=== PATIENT | male | born 1965 | race Caucasian/White ===

== ENCOUNTER → 2023-09-17 13:31 | Outpatient (REF) | payer BC, SELFPAY | LOC: MRI 3T 13:31 | PROVIDERS: ATTENDING PHYSICIAN Specialist; FAMILY PHYSICIAN Family Medicine | DX: R97.20 Elevated prostate specific antigen [PSA] (principal) | CPT/HCPCS: 72197; A9575 ==

== ENCOUNTER → 2023-10-05 12:32 | Outpatient (REF) | payer BC, SELFPAY ==
[2023-10-05 15:36] LABS: % Basophils 0.3 % (0-2); % Eosinophils 0.6 % (0-6); % Immature Granulocytes 0.5 % (0-0.5); % Lymphocytes 12.8 % (20.5-51.1); % Monocytes 6.7 % (1.7-9.3); % Neutrophils 79.1 % (42.2-75.2); Absolute Eosinophils 0.1 10^3/uL (0-0.7); Absolute Immature Granulocytes 0.1 10^3/uL (0-0.05); Absolute Lymphocytes 1.6 10^3/uL (1.2-3.4); Absolute Monocytes 0.8 10^3/uL (0.1-0.6); Absolute Neutrophils 9.7 10^3/uL (1.4-6.5); Hematocrit 43.6 % (39.0-52.0); Hemoglobin 14.2 g/dL (13.0-18.0); Mean Corp Hgb Conc. 32.6 g/dL (33.0-37.0); Mean Corpuscular Hgb 28.4 pg (27.0-31.0); Mean Corpuscular Volume 87.2 fL (80.0-94.0); Mean Platelet Volume 10.3 fL (7.4-10.4); Nucleated Red Blood Cells % 0 % (-); Platelet Count 266 10^3/uL (130-400); Red Cell Dist. Width 13.9 % (11.5-14.5); White Blood Cell Count 12.3 10^3/uL (4.8-10.8)
== END ==
LOC: HWLAB 12:32
PROVIDERS: ATTENDING PHYSICIAN Internal Medicine; FAMILY PHYSICIAN Family Medicine
DX: R31.9 Hematuria, unspecified (principal)
CPT/HCPCS: 36415; 85025

== ENCOUNTER → 2023-10-15 07:00 | Outpatient (REF) | payer BC, SELFPAY | LOC: RCS 07:00 | PROVIDERS: ATTENDING PHYSICIAN Internal Medicine; FAMILY PHYSICIAN Family Medicine | DX: I48.91 Unspecified atrial fibrillation (principal); I10 Essential (primary) hypertension; R06.09 Other forms of dyspnea; R00.2 Palpitations | CPT/HCPCS: 78452; 93017; A9500; J2785 ==

== ENCOUNTER → 2023-10-18 07:36 | Outpatient (REF) | payer BC, SELFPAY | LOC: RCS 07:36 | PROVIDERS: ATTENDING PHYSICIAN Internal Medicine; FAMILY PHYSICIAN Family Medicine | DX: I48.91 Unspecified atrial fibrillation (principal); I10 Essential (primary) hypertension; R06.09 Other forms of dyspnea; R00.2 Palpitations | CPT/HCPCS: 93307; Q9957 ==

== ENCOUNTER → 2023-10-22 09:58 | Outpatient (REF) | payer BC, SELFPAY ==
[2023-10-22 12:05] LABS: ALT (SGPT) 25 U/L (0-50); AST (SGOT) 21 U/L (17-59); Albumin 4.2 g/dl (3.5-5.0); Alkaline Phosphatase 86 U/L (38-126); Blood Urea Nitrogen 21 mg/dl (9-20); Calcium 9.6 mg/dl (8.4-10.2); Carbon Dioxide 24 mmol/L (22-30); Chloride 104 mmol/L (98-107); Glucose 122 mg/dl (70-99); Potassium 4.6 mmol/L (3.5-5.1); Sodium 139 mmol/L (135-145); Total Bilirubin 0.8 mg/dl (0.2-1.3); Total Protein 7.3 g/dl (6.3-8.2); eGFR > 60.00
== END ==
LOC: REG 09:58
PROVIDERS: ATTENDING PHYSICIAN Internal Medicine Cardiovascular Disease; FAMILY PHYSICIAN Family Medicine
DX: R94.39 Abnormal result of other cardiovascular function study (principal); I42.9 Cardiomyopathy, unspecified; I10 Essential (primary) hypertension
CPT/HCPCS: 36415; 80053

== ENCOUNTER 2023-10-25 08:29 | Day surgery (SDC) | payer BC, SELFPAY ==
[2023-10-25] VITALS (10 sets, daily range): BP systolic 87–116; BP diastolic 58–86; BMI 50.5
[2023-10-25] MEDS: LOW STRENGTH ASPIRIN 81 MG PO (08:53)
[2023-10-25] MEDS: NSS 479 ML IV (08:55)
[2023-10-25] MEDS: NSS 1000 IV (10:24)
--- NOTE | 2023-10-25 10:29 | ITS.CL.CATH ---
Design And Sales Consultant - Catheterization
Cardiac Catheterization
Procedure Report:
CARDIAC CATHETERIZATION REPORT
Date of Procedure: 10/25/2023
Referring: Wayne Reveles MD, PhD
Indication: Newly diagnosed cardiomyopathy with newly diagnosed atrial fibrillation of unclear duration
HEMODYNAMIC DATA
AO: 98/60
LV: 98/14
LEFT VENTRICULOGRAPHY: Mildly dilated left ventricle with severe global hypokinesis with visually estimated EF 20-25%
CORONARY ANGIOGRAPHY
Dominance: Right
Left Main: Normal
LAD: Normal
Circumflex: Normal
RCA: Normal dominant vessel
Closure Device: None-the procedure was performed via the right radial artery. The Jed's test was normal prior to the procedure.
Radiation (mGy): 752
DAP (cm2.Gy): 71.3
Fluoroscopy time: 4.0 minutes
CONCLUSIONS
1: Mildly dilated left ventricle with severe global hypokinesis with EF 20-25%
2: Normal coronary arteries
3. Findings suggest either a tachcardia induced cardiomyopathy or an idiopathic cardiomyopathy with secondary AF. Will discuss cardioversion options with Dr Reveles
Copy to: Wayne Reveles MD, PhD, Stan Granda DO
Vu Sanford MD, [facility], [facility]
--- NOTE | 2023-10-25 11:05 | PTCARENOTE ---
Dr Sanford at pt bedside speaking to pt and pt's .
--- NOTE | 2023-10-25 11:44 | PTCARENOTE ---
Addendum entered by Mary Mathews RN 10/25/23 11:53:
Jenniffer MEREDITH assessed pt and states it is the cleaning soap.
Original Note:
Pt noted his right palm of his hand is ecchymotic post procedure. Pt denies any pain. +2 right radial pulse noted. No bleeding or hematoma noted. Jenniffer MEREDITH made aware and states will be in to evaluate pt.
== END 2023-10-25 13:00 | disposition home or self-care (01) ==
LOC: CATH 08:29
PROVIDERS: ATTENDING PHYSICIAN Internal Medicine Cardiovascular Disease
DX: I42.9 Cardiomyopathy, unspecified (principal); I48.19 Other persistent atrial fibrillation; R94.39 Abnormal result of other cardiovascular function study; I10 Essential (primary) hypertension; E78.5 Hyperlipidemia, unspecified; E66.01 Morbid (severe) obesity due to excess calories; Z68.43 Body mass index [BMI] 50.0-59.9, adult; R73.03 Prediabetes; G47.33 Obstructive sleep apnea (adult) (pediatric); Z79.01 Long term (current) use of anticoagulants; Z79.84 Long term (current) use of oral hypoglycemic drugs
CPT/HCPCS: 93458; C1894; Q9967

== ENCOUNTER → 2023-10-27 07:30 | Day surgery (SDC) | payer BC, SELFPAY ==
[2023-10-27 08:22] VITALS: BMI 51.0
== END ==
LOC: CATH 07:30
PROVIDERS: ATTENDING PHYSICIAN Internal Medicine; FAMILY PHYSICIAN Family Medicine
DX: I48.19 Other persistent atrial fibrillation (principal); I42.9 Cardiomyopathy, unspecified; R94.39 Abnormal result of other cardiovascular function study; I10 Essential (primary) hypertension; E78.5 Hyperlipidemia, unspecified; E66.01 Morbid (severe) obesity due to excess calories; Z68.43 Body mass index [BMI] 50.0-59.9, adult; R73.03 Prediabetes; G47.33 Obstructive sleep apnea (adult) (pediatric); Z79.01 Long term (current) use of anticoagulants
CPT/HCPCS: 93312; 93320; 93325; 92960

== ENCOUNTER → 2023-11-08 09:11 | Outpatient (REF) | payer BC, SELFPAY ==
[2023-11-08 10:06] LABS: % Basophils 0.3 % (0-2); % Eosinophils 1.1 % (0-6); % Immature Granulocytes 0.3 % (0-0.5); % Lymphocytes 11.2 % (20.5-51.1); % Monocytes 9.2 % (1.7-9.3); % Neutrophils 77.9 % (42.2-75.2); Absolute Eosinophils 0.1 10^3/uL (0-0.7); Absolute Monocytes 0.8 10^3/uL (0.1-0.6); Absolute Neutrophils 6.9 10^3/uL (1.4-6.5); Hematocrit 43.3 % (39.0-52.0); Hemoglobin 13.9 g/dL (13.0-18.0); Mean Corp Hgb Conc. 32.1 g/dL (33.0-37.0); Mean Corpuscular Hgb 28.4 pg (27.0-31.0); Mean Corpuscular Volume 88.4 fL (80.0-94.0); Mean Platelet Volume 10.1 fL (7.4-10.4); Nucleated Red Blood Cells % 0 % (-); Platelet Count 236 10^3/uL (130-400); Red Cell Dist. Width 14.2 % (11.5-14.5); White Blood Cell Count 8.9 10^3/uL (4.8-10.8)
[2023-11-08 10:39] LABS: Blood Urea Nitrogen 21 mg/dl (9-20); Calcium 8.9 mg/dl (8.4-10.2); Carbon Dioxide 23 mmol/L (22-30); Chloride 108 mmol/L (98-107); Glucose 113 mg/dl (70-99); Potassium 4.5 mmol/L (3.5-5.1); Sodium 137 mmol/L (135-145); eGFR > 60.00
== END ==
LOC: REG 09:11
PROVIDERS: ATTENDING PHYSICIAN Nurse Practitioner; FAMILY PHYSICIAN Family Medicine
DX: I42.9 Cardiomyopathy, unspecified (principal)
CPT/HCPCS: 36415; 80048; 85025

== ENCOUNTER 2023-11-23 07:56 | Day surgery (SDC) | payer BC, SELFPAY ==
[2023-11-23] VITALS (15 sets, daily range): BP systolic 60–136; BP diastolic 33–105; BMI 49.2
[2023-11-23 11:16] LABS: ACT-LR - POC 236 Seconds (116-155)
[2023-11-23 11:38] LABS: ACT-LR - POC 260 Seconds (116-155)
[2023-11-23 11:44] LABS: ACT-LR - POC 269 Seconds (116-155)
[2023-11-23 11:45] LABS: ACT-LR - POC 277 Seconds (116-155)
[2023-11-23 12:10] LABS: ACT-LR - POC 314 Seconds (116-155)
--- NOTE | 2023-11-23 12:44 | ITS.CL.ABL ---
[facility] - Ablation
Ablation
Procedure Report:
AFIB ablation:
Mr. Berg is a very pleasant 57 yr old gentleman with medical history significant for symptomatic long standing persistent atrial fibrillation with severe systolic dysfunction with dilated cardiomyopathy LVEF of 20% and severe LUTHER with morbid
obesity who is here in the EP lab for atrial fibrillation ablation
Date of Procedure:
11/23/2023
Indications:
Symptomatic atrial fibrillation
Pre-Operative Diagnosis:
Longstanding Persistent Atrial fibrillation
Post-Operative Diagnosis:
Longstanding Persistent Atrial fibrillation
Procedure Performed:
Atrial fibrillation ablation with wide area circumferential ablation (WACA) approach for pulmonary vein isolation
Epicardial connection in the left jasiel ablation
Performing Physician:
Pascual Mendez MD
Assistants:
EP staff
Anesthesia:
See anesthesia records
Detailed Description of the Procedure:
Written informed consent was obtained from the patient after a full explanation of the risks and benefits of the procedure including the risks of sedation and anesthesia.
The patient was brought to the electrophysiology laboratory in stable condition in fasting state. Continuous electrocardiographic and hemodynamic monitoring was initiated.
The initial rhythm was atrial fibrillation.
The procedure site was meticulously prepared with surgical scrub and allowed to dry with no pooling. Sterile draping was applied to cover the procedure site. The image intensifier was draped with sterile bag and positioned over the patient. After
infusion of local anesthetic, vascular access was obtained under ultrasound guidance and sheaths were placed over guide wire as detailed below.
Sheath and Catheter Placement:
In the right femoral vein, an 8-Macedonian sheath was placed for use during the ablation procedure. A second 9-Fr sheath was placed for use during intracardiac echo procedure.
The sheaths were upgraded as needed during the case. Intracardiac catheters were positioned using direct fluoroscopic guidance.� ICE catheter was placed in RA. The following catheters / sheaths were placed
Sheaths:
��������������� Agilis sheath in right femoral vein upgraded from 8Fr in right femoral vein
��������������� 9Fr in right femoral vein
��������������� 7fr in right femoral vein
Catheters:
������������� [employer] Thermacool STSF bidirectional (D/F) - at locations of HRA, RV, LA and LV.
������������� Pentaray catheter � at locations of RA and LA
������������� ICE catheter - at locations of RA, SVC, and RV.
������������� Decapolar Bard catheter � at locations of RA and CS
Intracardiac ECHO:
An 8-Macedonian AcuNav intracardiac ECHO (ICE) probe was advanced through the 9-Macedonian sheath in the femoral vein into the right atrium under fluoroscopic and ICE ultrasound image guidance and a baseline ECHO study was performed. The left atrial size
was enlarged. There was trace tricuspid regurgitation. The aortic valve was normal. There was severe systolic left ventricular dysfunction. There was no pericardial effusion. The XIAO has low velocities noted on Doppler in atrial fibrillation. All
the four veins were identified and good flow noted.
During the procedure, ICE was used for monitoring of complications, guidance of trans-septal puncture, monitor the catheter position and tracking ablation lesions. No change in the pericardial space noted throughout the procedure.
Trans-septal Puncture:
Heparin was initiated and infused to maintain appropriate ACT.
A J-tipped guidewire was advanced through the 8-Macedonian sheath in the right femoral vein into the superior vena cava under fluoroscopic and ICE guidance. The 8-Macedonian sheath was exchanged for an Agilis sheath which was advanced into the superior vena
cava. A BRK needle was advanced until the tip was slightly behind the tip of the dilator inside the Agilis. The apparatus was withdrawn until it was in contact with the fossa ovalis. The position was adjusted based on fluoroscopy and ultrasound
images from ICE. Under fluoroscopic, hemodynamic and ICE ultrasound guidance, left atrium was cannulated by advancing the needle. Once atrial septum was cannulated, the needle was pulled back and saline injection was given into the left atrium. Both
the sheath and the dilator was advanced into the left atrium. The dilator with the needle was withdrawn. Blood was aspirated from the Agilis sheath and arterial blood confirmed. The sheath was flushed. Saline injection noted into the left atrium on
ICE. The pressure waveform was checked ad LA pressure measured. The penta-ray catheter was advanced in the Agilis sheath into the left pulmonary vein.
The 3-D mapping was done and then the penta-ray was switched to ablation catheter and back to penta-ray as needed.
While mapping the LA the transseptal puncture was lost and another TSSP was done as noted above.
3D Electroanatomic Mapping:
Using the Pentaray catheter advanced through Agilis sheath into the left atrium, an electroanatomic map (EAM) of the left atrium was created using The [employer] Carto mapping system. The map was used for localization of catheter position and
tacking of ablation lesions. The EAM of the left atrium showed 4 pulmonary veins with all four electrically connected to the body the LA. It showed some low voltage areas in atrial fibrillation on the posterior wall of the LA in atrial fibrillation
but once sinus rhythm achieved, there was only mild scar present. The LA was dilated in size.
The four pulmonary veins were very active and significant ectopy was noted.
Following the EAM, preparations were made for ablation.
Phrenic nerve stimulation attempt:
The right sided pulmonary veins were identified and the anterior antrum and the deep anterior locations of the PVs were check with high output stimulation that showed no phrenic nerve capture in any of the potential ablation areas.
The safe areas were marked and a design line was created through the safe areas of tested antral myocardium for ablation lesions.
Ablation:
Pulmonary vein Isolation:
Radiofrequency ablation was performed using an open irrigation, force-sensing 3.5mm radiofrequency ablation catheter (Thermocool STSF) by completing the circumferential lesions around the left and right pulmonary veins achieving pulmonary vein
isolation.
All the ablation lesions were guided by the [facility] SURPOINT module with the posterior lesions were limited to 45 luna for SURPOINT lesion index goal of 400 and anterior wall lesions were limited to SURPOINT index goal of 450.
The esophagus was noted to be on the left side of the LA near the PV antra based on the locations of the esophageal temperature probe. Ablation was stopped for any temperature increase of 0.1 degree C. Max esophageal temperature was 37.6C.
Cardioversion:
Due to the persistence of atrial fibrillation following the PVI, the decision was made to proceed with a cardioversion followed by the remainder of the ablation as detailed below. Therefore, a 200J shock was delivered to the chest via Zoll patches
placed with holiness of sinus rhythm. The patient remained hemodynamically stable throughout.
The CS was paced with the ablator and no cardiac pause noted.
Ablation # 2: Epicardial connection:
The epicardial connections around the jasiel of the left sided PVs were identified by capturing LA from pacing from these locations. These locations were ablated and there was no capture noted after that.
Ablation # 3: Left carinal line formation:
Given the presence of epicardial connection in the carinal area, the decision was made to create a full line of block be placing ablation lesions connecting from the posterior antral ablation lesions to the anterior antral ablations.
EP study and Confirmation of the PVI and bidirectional block:
Following achievement of entrance block at the pulmonary veins, pacing from the pentaray catheter in XIAO and the pentaray in each of the four veins at 10 milliamps for 2 milliseconds showed entrance and exit block. All PVI were rechecked at the end
of the case and remained isolated with dissociated and local capture with pacing. Entrance and exit block were demonstrated in all veins.
The LA was mapped with Carto EAM in sinus rhythm confirming the line of block at the ablation lesions lines.
Sinus Node Function: The sinus node functions are within acceptable normal range.
The AV saturnino functions are deemed within normal range.
Arrhythmia Induction:
No sustained arrhythmia was induced at the end of the study.�
Procedure End
ICE study was done again that showed no epicardial accumulation. No complications noted.
Following the completion of the EP study, catheters were removed. Protamine 40 mg was given at the end of the procedure and ACT was checked repeatedly. The sheaths were removed and hemostasis achieved with manual compression after acceptable ACT is
achieved.
Left atrial Pressure:
Pre-Procedure: Mean LA pressure was 26mmHg
Post-Procedure: Mean LA pressure was 29mmHg
Post-Procedure: Mean RA pressure was 18mmHg
Estimated Blood loss:
<10 cc
Specimens Removed:
None.
Implants / Devices:
None
Urine output:
None
Packs / Drains/ Tubes:
None
Instrument / Sponge Count Correct:
Yes
Complications of the Procedure:
None
Condition of Patient at Time of Transfer:
Hemodynamically stable with no neurological or vascular compromise.
Summary:
Successful atrial fibrillation ablation with circumferential bidirectional line of block at pulmonary vein antra (Pulmonary vein isolation)
[2023-11-23] MEDS: LASIX 40 MG IV (13:23)
--- NOTE | 2023-11-23 15:03 | PTCARENOTE ---
Received pt from recovery area. AOx3, no complaints of pain or discomfort. Bedrest completed, pt ambulated to bathroom. Right groin site CDI. Oriented to room and unit. Call gonzáles within reach.
[2023-11-23] MEDS: ANESTHETIC LOZENGE 1 LOZENGE PO (15:56)
--- NOTE | 2023-11-23 16:13 | CM ---
Chart reviewed. Patient is independent of ADLS, lives with his in a 2 [address], 1 GABRIELA, 0 DME. Patient currently with no discharge needs. CM to follow
[2023-11-23] MEDS: FLOMAX 0.400000000000000022 MG PO (17:39)
[2023-11-23] MEDS: PROSCAR 5 MG PO (17:39)
[2023-11-23] MEDS: ENTRESTO 49 MG/51 MG 1 TAB PO (20:24)
[2023-11-23] MEDS: ELIQUIS 5 MG PO (20:24)
[2023-11-23] MEDS: TYLENOL 650 MG PO (20:25)
--- NOTE | 2023-11-24 02:34 | PTCARENOTE ---
Took tylenol at 2025 for c/o of a headache with relief. Using his own CPAP at . Monitor SR 60-80's with first degree AVB. Right femoral site wnl.
[2023-11-24 04:47] VITALS: BP 130/94
[2023-11-24 05:21] VITALS: BMI 48.9
[2023-11-24 05:25] LABS: Hematocrit 42.9 % (39.0-52.0); Hemoglobin 13.5 g/dL (13.0-18.0); Mean Corp Hgb Conc. 31.5 g/dL (33.0-37.0); Mean Platelet Volume 9.7 fL (7.4-10.4); Platelet Count 202 10^3/uL (130-400); Red Blood Cell Count 4.82 10^6/uL (4.70-6.10); Red Cell Dist. Width 14.3 % (11.5-14.5)
[2023-11-24 05:51] LABS: Blood Urea Nitrogen 18 mg/dl (9-20); Carbon Dioxide 26 mmol/L (22-30); Chloride 107 mmol/L (98-107); Estimated Creatinine Clearance > 125 ml/min; Glucose 117 mg/dl (70-99); Magnesium 2.1 mg/dl (1.6-2.3); Potassium 4.7 mmol/L (3.5-5.1); Sodium 137 mmol/L (135-145); eGFR > 60.00
[2023-11-24] MEDS: ELIQUIS 5 MG PO (07:23)
[2023-11-24 07:24] VITALS: BP 108/69
[2023-11-24] MEDS: ENTRESTO 49 MG/51 MG 1 TAB PO (07:24)
[2023-11-24] MEDS: FARXIGA 10 MG PO (07:24)
[2023-11-24 08:28] VITALS: BMI 48.9
--- NOTE | 2023-11-24 08:45 | W.PN.CD ---
Today's Communication / Plan
-
- Stable for discharge
- Lasix added to regimen.
Impression / Plan
-
Mr. Berg is a very pleasant 57 yr old gentleman with medical history significant for symptomatic long standing persistent atrial fibrillation with severe systolic dysfunction with dilated cardiomyopathy LVEF of 20% and severe LUTHER with morbid
obesity s/p atrial fibrillation ablation
Long standing persistent AF
- s/p PVI om 11/23/23
- Sinus node was slow to wake up and junction rhythm noted
- Metoporlol held
- Sinus rhythm is normal this AM
- OK to resume Metoprolol
- Stable for discharge
- Continue Eliquis 5 mg BID
CHF
- Chronic heart failure with severe systolic dysfunction
- LVEF 20%
- Decompensated in the pre-op with elevated LA pressures
- s/p diuresis with IV lasix
- Plan to discharge home with Lasix 40 mg QD for 3 days then prn QD
- Continue Entresto, Metoprolol and Farxiga
LUTHER
- Morbid obesity
- ON CPAP - high pressure.
- Weight loss
Physical Exam
Vital Signs/Labs
Vital Signs
Temp Pulse Resp BP Pulse Ox
97.8 F 75 20 108/69 97
11/24/23 08:01 11/24/23 07:24 11/24/23 08:01 11/24/23 07:24 11/24/23 08:01
11/23/23 11/24/23 11/25/23
06:59 06:59 06:59
Actual Weight 158.9 kg
11/24/23 05:15
11/24/23 05:15
Magnesium 2.1 mg/dl (1.6-2.3) 11/24/23 05:15
Physical Exam
Constitutional: No acute distress and Comfortable
EENT: Anicteric and Moist mucous membranes
Cardiovascular: Rhythm & rate is regular, Pedal edema present, JVD present and Systolic murmur present
Respiratory: Respiratory effort normal, Wheeze Absent and Crackles Absent
GI: Soft, Flat and Non tender
Neuro/Psych: Alert, Oriented, AO x 3 and Motor deficits absent
Other: Cath Site
Data Reviewed
-
Date of Service: November 24, 2023
Medical Decision Making: Reviewed Test Results, Independent Historian Assessment, Test Interpretation and Review of Case with other Provider
EKG: Tracing Personally Visualized and interpreted
Echo: Report Reviewed by me
Labs: Labs Reviewed by me
Old Records: Reviewed
Total Time Spent with Patient (in minutes): 35
--- NOTE | 2023-11-24 13:42 | W.DS.TRANS ---
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
-
Discharge Instructions:
Discharge Diagnosis/Procedures AFib, s/p ablation
Diet Low Cholesterol,2 Gram Sodium,Restrict fluids to
48 oz
Driving Restrictions No driving for 24 hours
Specialty Instructions Weigh Daily
Instructions:
Stand-Alone Forms: DC Instructions- Cath/EP Lab
Changes to Home Medications: Yes
Discharge Medications:
DC Medications w/original date entered in [facility]
Berbetine 400mg 800 mg PO BID Supplement 10/25/23
apixaban 5 mg tablet (Eliquis) 5 mg PO BID Blood Clot Prevention/Tx 10/25/23
coenzyme Q10 100 mg capsule (CoQ-10) 100 mg PO DAILY Supplement 10/25/23
dapagliflozin propanediol 10 mg tablet (Farxiga) 10 mg PO DAILY heart failure 10/25/23
finasteride 5 mg tablet 5 mg PO QPM Urinary Issue 10/25/23
magnesium 200 mg tablet 200 mg PO HS Supplement 10/25/23
metoprolol succinate 25 mg tablet,extended release 24 hr 25 mg PO BID Blood Pressure 10/25/23
sacubitril 49 mg-valsartan 51 mg tablet (Entresto) 1 tab PO BID heart failure 10/25/23
sildenafil 100 mg tablet 100 mg PO DAILY PRN ED 10/25/23
tamsulosin 0.4 mg capsule 0.4 mg PO QPM Urinary Issue 10/25/23
furosemide 40 mg tablet (Lasix) 40 mg PO DAILY #60 tabs 11/24/23
pantoprazole 40 mg tablet,delayed release (Protonix) 40 mg PO DAILY #14 tabs 11/24/23
Home Medication Changes
new to lasix
Pending Results: No
== END 2023-11-24 12:58 | disposition home or self-care (01) ==
LOC: CATH 07:56
PROVIDERS: Nurse Practitioner; ATTENDING PHYSICIAN Internal Medicine Cardiovascular Disease; FAMILY PHYSICIAN Family Medicine
DX: I48.11 Longstanding persistent atrial fibrillation (principal); I11.0 Hypertensive heart disease with heart failure; I50.22 Chronic systolic (congestive) heart failure; R73.03 Prediabetes; E78.5 Hyperlipidemia, unspecified; G47.33 Obstructive sleep apnea (adult) (pediatric); E66.01 Morbid (severe) obesity due to excess calories; Z68.42 Body mass index [BMI] 45.0-49.9, adult; I42.0 Dilated cardiomyopathy; Z79.01 Long term (current) use of anticoagulants
CPT/HCPCS: C1769; C1760; C1732; C1892; C1759; 76937; 80048; 83735; 85027; 85347; 86850; 86900; 86901; 93005; 93656; C1730; C1894

== ENCOUNTER 2023-12-13 09:32 | Day surgery (SDC) | payer BC, SELFPAY ==
--- NOTE | 2023-12-13 13:13 | ITS.CL.CARDI ---
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
Cardioversion
Procedure Report:
Date of Procedure: 12/13/23.
Procedure: Cardioversion.
Indication: Symptomatic atrial fibrillation.
Performing Physician: Swati Rubio MD
Technique: The patient was brought to the holding area. Signed informed consent was obtained. A time out was called and performed. The patient was sedated by a member of the anesthesia service. Anticoagulation status was reviewed and was
appropriate. R-2 pads were placed anteriorly and posteriorly. A 200 J, 300J and then 360J of synchronized biphasic shocks were delivered all failing to restore sinus rhythm.
Conclusion: Unsuccessful cardioversion. Rate controlled atrial fibrilliation persists.
Recommendation: Routine post cardioversion care. Continue long term care administrator anticoagulation.
cc: Andrea Reveles
== END 2023-12-13 12:16 | disposition home or self-care (01) ==
LOC: CATH 09:32
PROVIDERS: ATTENDING PHYSICIAN Internal Medicine Cardiovascular Disease; FAMILY PHYSICIAN Family Medicine; OTHER PHYSICIAN Internal Medicine
DX: I48.19 Other persistent atrial fibrillation (principal); I42.9 Cardiomyopathy, unspecified; I10 Essential (primary) hypertension; E78.5 Hyperlipidemia, unspecified; G47.33 Obstructive sleep apnea (adult) (pediatric); E66.01 Morbid (severe) obesity due to excess calories; Z68.43 Body mass index [BMI] 50.0-59.9, adult; Z79.84 Long term (current) use of oral hypoglycemic drugs; Z79.01 Long term (current) use of anticoagulants
CPT/HCPCS: 92960

== ENCOUNTER → 2023-12-16 12:24 | Outpatient (REF) | payer BC, SELFPAY ==
[2023-12-16 13:55] LABS: ALT (SGPT) 19 U/L (0-50); AST (SGOT) 19 U/L (17-59); Alkaline Phosphatase 85 U/L (38-126); Blood Urea Nitrogen 20 mg/dl (9-20); Carbon Dioxide 23 mmol/L (22-30); Chloride 109 mmol/L (98-107); Glucose 108 mg/dl (70-99); Sodium 140 mmol/L (135-145); Total Bilirubin 0.8 mg/dl (0.2-1.3); Total Protein 6.8 g/dl (6.3-8.2); eGFR > 60.00
== END ==
LOC: REG 12:24
PROVIDERS: ATTENDING PHYSICIAN Internal Medicine; FAMILY PHYSICIAN Family Medicine
DX: I48.19 Other persistent atrial fibrillation (principal)
CPT/HCPCS: 36415; 80053

== ENCOUNTER 2023-12-21 07:54 | Inpatient (IN) | payer BC, SELFPAY ==
[2023-12-21] VITALS (8 sets, daily range): BP systolic 109–141; BP diastolic 81–116; BMI 48.6
--- NOTE | 2023-12-21 08:29 | W.PN.CD ---
Addendum entered and electronically signed by Miri Rubio MD 12/21/23 10:53:
I saw and examined the patient.
The GRAPHIC MANAGER's note was reviewed and I agree with the note.
Comment: Patient feeling well without complain, irreg irreg , lungs cta. ECG afib with avg QTC 440m/s. Will started Tikosyn, he has not missed doses of Eliquis. If he doesn't cardiovert will attempt DCCV if he tolerates Tikosyn. Continue current
GDMT.
Addendum entered and electronically signed by MASOUD Carter 12/21/23 10:08:
Correction to below, furosemide is as needed for weight gain
Original Note:
Today's Communication / Plan
-
Dofetilide loading per protocol
Impression / Plan
-
BACKGROUND: 57M with HFrEF, HTN, dyslipidemia, pre-DM, LUTHER on CPAP, & persistent atrial fibrillation S/P ANA/cardioversion 10/27/2023 x 3 unsuccessful and PVI 11/23/2023. Postprocedure, he had a junctional rhythm that resolved the following day and
then was noted to a sinus tachycardia. He presented for outpatient follow-up and was found to be in atrial fibrillation with rapid ventricular response. He was symptomatic with palpitations and fatigue. He presents for dofetilide loading.
Hide Dyer: Dr. Reveles
EP: Dr. Mendez
Persistent atrial fibrillation
-Unsuccessful DCCV 10/27/2023, PVI 11/23/2023, unsuccessfull DCCV 12/13/2023
-Rate controlled
-Oral Anticoagulation: Apixaban 5 mg twice daily, he denies missed doses and abnormal bleeding
-[id number]: score 2 (Heart failure, HTN)
-Dofetilide loading, this requires intensive monitoring of QTc
-Plan to restore sinus rhythm with cardioversion if necessary this hospitalization
HFrEF (EF 20-25%), chronic
-He does not appear to be in acute, decompensated heart failure
-GDMT as tolerated
-SARAH/ARB: Sacubitril�valsartan 49-51 mg BID
-Beta-everardo: Metoprolol succinate 25 mg BID
-SGLT2i: Farxiga 10 mg daily
-ARNI: Can consider however potassium is already borderline
-Diuretic: Furosemide 40 mg daily
-ICD: Reevaluate LVEF 3 months after maximally tolerated GDMT
-Heart failure education
-Follow daily weight
Mildly dilated proximal ascending aorta, 4.1 cm
Obesity, BMI 48.6
LUTHER, on CPAP
Physical Exam
Vital Signs/Labs
Vital Signs
Temp Resp
98.1 F 18
12/21/23 08:25 12/21/23 08:25
12/20/23 12/21/23 12/22/23
06:59 06:59 06:59
Actual Weight 158.1 kg
Physical Exam
Constitutional: No acute distress and Comfortable
EENT: Anicteric and Moist mucous membranes
Cardiovascular: Pedal edema is absent, Rhythm/rate is irregular and S1S2 is normal
Respiratory: Respiratory effort normal and Lungs clear to auscul.
GI: Soft, Distention absent, Flat and Non tender
Neuro/Psych: AO x 3
Other: Skin (Warm and dry)
Data Reviewed
-
Date of Service: December 21, 2023
Echo: Report Reviewed by me
Labs: Labs Reviewed by me
Old Records: Reviewed
--- NOTE | 2023-12-21 10:05 | W.CARD.TIKOS ---
Initiate Tikosyn
-
I verify that the patient has not taken any verapamil (Isoptin/Calan), ketoconazole (Nizoral), cimetidine (Tagamet), trimethoprim (Trimpex), trimethoprim/sulfamethoxazole (Bactrim), megesterol (Megace), prochlorperazine (Compazine),
hydrochlorothiazide (HCTZ), dolutegravir (Tivicay) or any Class I or Class III anti-arrhythmic within the last three days
AND
I verify that the patient has not taken amiodarone within the last THREE months, or that the patient's amiodarone plasma concentration is <0.3 mcg/mL.
I have assessed the baseline QTc interval (using QT for heart rate less than 60 bpm) and deemed the patient is appropriate for Dofetilide therapy. I understand that Tikosyn is contraindicated if the QTc is >440msec (500msec in patients with
ventricular conduction abnormalities).
Baseline QTc (in msec): 440
Ordering Physician: Pascual Mendez
[2023-12-21] MEDS: TIKOSYN 500 MCG PO ×2 (10:07→20:00)
--- NOTE | 2023-12-21 11:50 | CM ---
Chart reviewed. Patient is independent of ADLS, lives with his in a 2 STH, 1 GABRIELA, 0 DME. Plan is for the patient to return home. CM to follow
--- NOTE | 2023-12-21 11:51 | CM ---
Pricing in Dofetilide 500 mcq through the patient's [facility] is $5 for a 30 day supply. Dofetilide 500mcq is available at the patient's [facility]. I will call and confirm on day of discharge.
--- NOTE | 2023-12-21 14:55 | PTCARENOTE ---
Pt offers no complaints. VSS. Pt remains in A-fib on monito, ambulating in room
[2023-12-21] MEDS: FLOMAX 0.400000000000000022 MG PO (18:35)
[2023-12-21] MEDS: PROSCAR 5 MG PO (18:35)
[2023-12-21] MEDS: TOPROL XL 25 MG PO (20:00)
[2023-12-21] MEDS: ENTRESTO 49 MG/51 MG 1 TAB PO (20:00)
[2023-12-21] MEDS: ELIQUIS 5 MG PO (20:00)
[2023-12-21] MEDS: MAG-TAB SR 84 MG PO (21:00)
[2023-12-21] MEDS: TYLENOL 650 MG PO (21:00)
--- NOTE | 2023-12-21 23:54 | PTCARENOTE ---
Pt rec'd at change of shift in recliner chair. Afib with rates 80-120 with occ pvc's noted. pt denies sob. H/A noted rated 3 out of 10 improved after receiving Tylenol. ecg 2 hr post second dose of Tikosyn showed QTc of 480
[2023-12-22] VITALS (7 sets, daily range): BP systolic 113–127; BP diastolic 78–106; BMI 48.4
--- NOTE | 2023-12-22 06:24 | PTCARENOTE ---
Pt remains in controlled afib at this time.
--- NOTE | 2023-12-22 07:46 | W.PN.CD ---
Today's Communication / Plan
-
- Loading Tikosyn
- DCCV in AM. NPO after midnight.
Impression / Plan
-
BACKGROUND: 57M with HFrEF, HTN, dyslipidemia, pre-DM, LUTHER on CPAP, & persistent atrial fibrillation S/P ANA/cardioversion 10/27/2023 x 3 unsuccessful and PVI 11/23/2023. Postprocedure, he had a junctional rhythm that resolved the following day and
then was noted to a sinus tachycardia. He presented for outpatient follow-up and was found to be in atrial fibrillation with rapid ventricular response. He was symptomatic with palpitations and fatigue. He presents for dofetilide loading.
Brand Recorder: Dr. Reveles
EP: Dr. Mendez
Persistent atrial fibrillation
-Unsuccessful DCCV 10/27/2023, PVI 11/23/2023, unsuccessfull DCCV 12/13/2023
-Rate controlled
-Oral Anticoagulation: Apixaban 5 mg twice daily, he denies missed doses and abnormal bleeding
-[id number]: score 2 (Heart failure, HTN)
-Dofetilide loading, this requires intensive monitoring of QTc
- Dose # 3 this AM
-Plan for cardioversion in AM
HFrEF (EF 20-25%), chronic
-He does not appear to be in acute, decompensated heart failure
-GDMT as tolerated
-SARAH/ARB: Sacubitril�valsartan 49-51 mg BID
-Beta-everardo: Metoprolol succinate 25 mg BID
-SGLT2i: Farxiga 10 mg daily
-ARNI: contraindicated due to hyperkalemia.
-Diuretic: Furosemide 40 mg daily
-ICD: Reevaluate LVEF after 3 months of maximally tolerated GDMT - LVEF 20% on 10/18/23. On GDMT since then. Re-evaluate LVEF in a week in sinus rhythm. If still below 30% then consider ICD.
-Heart failure education
-Follow daily weight
Mildly dilated proximal ascending aorta, 4.1 cm
Obesity, BMI 48.6
LUTHER, on CPAP
Physical Exam
Vital Signs/Labs
Vital Signs
Temp Pulse Resp BP Pulse Ox
97.4 F 88 20 126/87 96
12/22/23 07:41 12/22/23 07:30 12/22/23 07:41 12/22/23 04:07 12/22/23 07:41
12/21/23 12/22/23 12/23/23
06:59 06:59 06:59
Actual Weight 158.1 kg
Physical Exam
Constitutional: No acute distress and Comfortable
EENT: Anicteric and Moist mucous membranes
Cardiovascular: Rhythm/rate is irregular, JVD present and Systolic murmur present
Respiratory: Respiratory effort normal and Rhonchi Present
GI: Soft and Normal bowel sounds
Neuro/Psych: Alert, Oriented and AO x 3
Data Reviewed
-
Date of Service: December 22, 2023
Medical Decision Making: Reviewed Test Results, Test Interpretation and Review of Case with other Provider
EKG: Tracing Personally Visualized and interpreted
Echo: Report Reviewed by me
Labs: Labs Reviewed by me
Old Records: Reviewed
--- NOTE | 2023-12-22 08:00 | PTCARENOTE ---
Assumed care of pt from prev nsg shift. Pt AAOx3 w/no c/o CP or SOB. Pt does appear to be mildy dyspneic w/activity but SpO2 sats on RA at 96-97%. Pt's VS stable w/HR in the 80's90's, w/BP 121/99. Pt remains Afib w/occas PVC's on telemetry
monitoring. Pt w/no addtl needs at this time, plan of care ongoing.
[2023-12-22] MEDS: ENTRESTO 49 MG/51 MG 1 TAB PO ×2 (08:11→19:43)
[2023-12-22] MEDS: TIKOSYN 500 MCG PO ×2 (08:11→19:43)
[2023-12-22] MEDS: FARXIGA 10 MG PO (08:11)
[2023-12-22] MEDS: ELIQUIS 5 MG PO ×2 (08:11→19:43)
[2023-12-22] MEDS: TOPROL XL 25 MG PO ×2 (08:11→19:42)
[2023-12-22] MEDS: PROSCAR 5 MG PO (18:25)
[2023-12-22] MEDS: FLOMAX 0.400000000000000022 MG PO (18:25)
[2023-12-22] MEDS: MAG-TAB SR 84 MG PO (22:11)
--- NOTE | 2023-12-22 23:56 | PTCARENOTE ---
Pt rec'd at change of shift awake,alert oob in recliner chair. Pt remains in afib. 4th dose of Tikosyn given with QTc 2 hrs post 474. Pt aware of npo status after mn for CV in am.
[2023-12-23 04:05] VITALS: BP 122/96
--- NOTE | 2023-12-23 04:14 | PTCARENOTE ---
Pt converted to sinus rhythm at 0229 with occ pac's and pvc's noted. pt remains npo
[2023-12-23 04:16] VITALS: BMI 48.4
--- NOTE | 2023-12-23 05:23 | PTCARENOTE ---
Pt continues to remain in a sinus rhythm 60's.
[2023-12-23 08:09] VITALS: BP 117/80
[2023-12-23] MEDS: ELIQUIS 5 MG PO ×2 (08:41→19:59)
[2023-12-23] MEDS: ENTRESTO 49 MG/51 MG 1 TAB PO ×2 (08:42→19:58)
[2023-12-23] MEDS: FARXIGA 10 MG PO (08:42)
[2023-12-23] MEDS: TIKOSYN 500 MCG PO ×2 (08:42→19:59)
[2023-12-23] MEDS: TOPROL XL 25 MG PO ×2 (08:42→19:59)
--- NOTE | 2023-12-23 11:29 | CM ---
Chart reviewed. Patient is independent of ADLS, lives with his in a [address], [address], 0 DME. Patients Tikosyn 500mcq is available at the patient's [facility].
[2023-12-23 11:34] VITALS: BP 123/86
--- NOTE | 2023-12-23 11:54 | W.PN.CD ---
Today's Communication / Plan
-
- Continue Tikosyn loading.
Impression / Plan
-
BACKGROUND: 57M with HFrEF, HTN, dyslipidemia, pre-DM, LUTHER on CPAP, & persistent atrial fibrillation S/P ANA/cardioversion 10/27/2023 x 3 unsuccessful and PVI 11/23/2023. Postprocedure, he had a junctional rhythm that resolved the following day and
then was noted to a sinus tachycardia. He presented for outpatient follow-up and was found to be in atrial fibrillation with rapid ventricular response. He was symptomatic with palpitations and fatigue. He presents for dofetilide loading.
Mobile Manager: Dr. Reveles
EP: Dr. Mendez
Persistent atrial fibrillation
-Unsuccessful DCCV 10/27/2023, PVI 11/23/2023, unsuccessfull DCCV 12/13/2023
-now converted to sinus. going in and out of AF overnight.
-Oral Anticoagulation: Apixaban 5 mg twice daily, he denies missed doses and abnormal bleeding
-[id number]: score 2 (Heart failure, HTN)
-Dofetilide loading, this requires intensive monitoring of QTc
- Dose # 5 this AM
-The QTc is borderline. Continue loading with his BMI of 50 to check after 6th dose as well.
-Possible discharge in AM.
HFrEF (EF 20-25%), chronic
-He does not appear to be in acute, decompensated heart failure
-GDMT as tolerated
-SARAH/ARB: Sacubitril�valsartan 49-51 mg BID
-Beta-everardo: Metoprolol succinate 25 mg BID
-SGLT2i: Farxiga 10 mg daily
-ARNI: contraindicated due to hyperkalemia.
-Diuretic: Furosemide 40 mg daily
-ICD: Reevaluate LVEF after 3 months of maximally tolerated GDMT - LVEF 20% on 10/18/23. On GDMT since then. Re-evaluate LVEF in a week in sinus rhythm. If still below 30% then consider ICD.
-Heart failure education
-Follow daily weight
Mildly dilated proximal ascending aorta, 4.1 cm
Obesity, BMI 48.6
LUTHER, on CPAP
Physical Exam
Vital Signs/Labs
Vital Signs
Temp Pulse Resp BP Pulse Ox
97.9 F 77 18 117/80 98
12/23/23 11:33 12/23/23 11:33 12/23/23 11:33 12/23/23 08:09 12/23/23 11:33
12/22/23 12/23/23 12/24/23
06:59 06:59 06:59
Actual Weight 157.5 kg 157.4 kg
Physical Exam
Constitutional: No acute distress and Comfortable
EENT: Anicteric and Moist mucous membranes
Cardiovascular: Rhythm & rate is regular, Pedal edema is absent and JVD present
Respiratory: Respiratory effort normal, Lungs clear to auscul. and Crackles Absent
GI: Soft, Non tender and Normal bowel sounds
Neuro/Psych: Alert, Oriented and AO x 3
Data Reviewed
-
Date of Service: December 23, 2023
Medical Decision Making: Reviewed Test Results, Independent Historian Assessment and Test Interpretation
EKG: Tracing Personally Visualized and interpreted
Echo: Report Reviewed by me
Labs: Labs Reviewed by me
Old Records: Reviewed
[2023-12-23 15:41] VITALS: BP 131/94
[2023-12-23] MEDS: PROSCAR 5 MG PO (18:24)
[2023-12-23] MEDS: FLOMAX 0.400000000000000022 MG PO (18:24)
--- NOTE | 2023-12-23 19:32 | PTCARENOTE ---
Pt given 5th dose of Tikosyn with QTc 499ms 2 hours after dose. notified, plan to watch rhythm and QTc until 12/23. Pt remains in sinus rhythm.
[2023-12-23 19:51] VITALS: BP 123/92
[2023-12-23] MEDS: MAG-TAB SR 84 MG PO (19:59)
[2023-12-23 22:17] VITALS: BP 124/89
[2023-12-24 02:38] VITALS: BP 134/84
[2023-12-24 03:21] LABS: Blood Urea Nitrogen 21 mg/dl (9-20); Calcium 9.8 mg/dl (8.4-10.2); Carbon Dioxide 25 mmol/L (22-30); Chloride 104 mmol/L (98-107); Estimated Creatinine Clearance > 125 ml/min; Glucose 107 mg/dl (70-99); Magnesium 2.1 mg/dl (1.6-2.3); Potassium 4.1 mmol/L (3.5-5.1); Sodium 141 mmol/L (135-145); eGFR > 60.00
--- NOTE | 2023-12-24 03:41 | PTCARENOTE ---
around 0100- tele monitor noted HR in the 115-120s range- SIENA Mariscal aware and orders obtained for EKG and blood work in the AM- EKG read ST w/ 1st degree. BP 130s/80s Pt was sleeping at the time of rate increase- and only noted 'chills' but
denies palpations or dizziness. No changes to plan of care at this time.
--- NOTE | 2023-12-24 04:54 | PTCARENOTE ---
around 0445 pt hr dropped back down into the 60-70s SR w. 1st degree. Pt was walking back from the bathroom when he noted the change in heart rate but did not note and change in feeling.
[2023-12-24 04:59] VITALS: BMI 47.8
[2023-12-24 07:25] VITALS: BP 103/80
[2023-12-24 07:27] VITALS: BP 103/80
[2023-12-24] MEDS: TIKOSYN 500 MCG PO (08:09)
[2023-12-24] MEDS: FARXIGA 10 MG PO (08:09)
[2023-12-24] MEDS: ENTRESTO 49 MG/51 MG 1 TAB PO (08:09)
[2023-12-24] MEDS: TOPROL XL 25 MG PO (08:09)
[2023-12-24] MEDS: ELIQUIS 5 MG PO (08:09)
--- NOTE | 2023-12-24 10:45 | W.PN.CD ---
Today's Communication / Plan
-
Home today
F/u arranged
Impression / Plan
-
BACKGROUND: 57M with HFrEF, HTN, dyslipidemia, pre-DM, LUTHER on CPAP, & persistent atrial fibrillation S/P ANA/cardioversion 10/27/2023 x 3 unsuccessful and PVI 11/23/2023. Postprocedure, he had a junctional rhythm that resolved the following day and
then was noted to a sinus tachycardia. He presented for outpatient follow-up and was found to be in atrial fibrillation with rapid ventricular response. He was symptomatic with palpitations and fatigue. He presents for dofetilide loading.
Manager Technical Sales: Dr. Reveles
EP: Dr. Mendez
Persistent atrial fibrillation and ATach
- Had several hours of ATach last night, no symptoms
- Back to sinus
- QTc OK now
- No Torsades
- Home today
-Unsuccessful DCCV 10/27/2023, PVI 11/23/2023, unsuccessfull DCCV 12/13/2023
-now converted to sinus. going in and out of AF overnight.
-Oral Anticoagulation: Apixaban 5 mg twice daily, he denies missed doses and abnormal bleeding
-[id number]: score 2 (Heart failure, HTN)
HFrEF (EF 20-25%), chronic
-He does not appear to be in acute, decompensated heart failure
-GDMT as tolerated
-SARAH/ARB: Sacubitril�valsartan 49-51 mg BID
-Beta-everardo: Metoprolol succinate 25 mg BID
-SGLT2i: Farxiga 10 mg daily
-ARNI: contraindicated due to hyperkalemia.
-Diuretic: Furosemide 40 mg daily
-ICD: Reevaluate LVEF after 3 months of maximally tolerated GDMT - LVEF 20% on 10/18/23. On GDMT since then. Re-evaluate LVEF in a week in sinus rhythm. If still below 30% then consider ICD.
-Heart failure education
-Follow daily weight
Mildly dilated proximal ascending aorta, 4.1 cm
Obesity, BMI 48.6
LUTHER, on CPAP
Physical Exam
Vital Signs/Labs
Vital Signs
Temp Pulse Resp BP Pulse Ox
97.4 F 66 20 103/80 98
12/24/23 07:25 12/24/23 08:09 12/24/23 07:25 12/24/23 08:09 12/24/23 07:25
12/23/23 12/24/23 12/25/23
06:59 06:59 06:59
Actual Weight 157.4 kg 155.5 kg
12/24/23 02:43
Magnesium 2.1 mg/dl (1.6-2.3) 12/24/23 02:43
Physical Exam
Constitutional: No acute distress
Cardiovascular: Rhythm & rate is regular and Pedal edema is absent
Respiratory: Respiratory effort normal
GI: Soft and Distention absent
Neuro/Psych: AO x 3 and Motor deficits absent
Data Reviewed
-
Date of Service: December 24, 2023
--- NOTE | 2023-12-24 11:16 | W.DS.TRANS ---
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
-
Discharge Instructions:
Discharge Diagnosis/Procedures Afib, Tikosyn loading
Diet Restrict fluids to 48 oz,2 Gram Sodium
Activity As tolerated
Driving Restrictions As prior to admission
Bathing Restrictions None
Instructions:
Stand-Alone Forms:
Changes to Home Medications: Yes
Discharge Medications:
DC Medications w/original date entered in [employer]
apixaban 5 mg tablet (Eliquis) 5 mg PO BID Blood Clot Prevention/Tx 10/25/23
coenzyme Q10 100 mg capsule (CoQ-10) 100 mg PO BID Supplement 10/25/23
dapagliflozin propanediol 10 mg tablet (Farxiga) 10 mg PO DAILY heart failure 10/25/23
finasteride 5 mg tablet 5 mg PO QPM Urinary Issue 10/25/23
magnesium 200 mg tablet 200 mg PO HS Supplement 10/25/23
metoprolol succinate 25 mg tablet,extended release 24 hr 25 mg PO BID Blood Pressure 10/25/23
sacubitril 49 mg-valsartan 51 mg tablet (Entresto) 1 tab PO BID heart failure 10/25/23
sildenafil 100 mg tablet 100 mg PO DAILY PRN ED 10/25/23
tamsulosin 0.4 mg capsule 0.4 mg PO QPM Urinary Issue 10/25/23
furosemide 40 mg tablet (Lasix) 40 mg PO DAILY PRN weight gain 12/21/23
dofetilide 500 mcg capsule 500 mcg PO Q12H #60 caps 12/24/23
Home Medication Changes
Tikosyn is new.
Pending Results: No
--- NOTE | 2023-12-24 12:22 | PTCARENOTE ---
read d/c instructions to pt and pt verbalized understanding. iv and tele removed. pt left with belongings from room and d/c instructions.
== END 2023-12-24 12:25 | disposition home or self-care (01) | DRG 309 ==
LOC: IVU 07:54
PROVIDERS: Internal Medicine Cardiovascular Disease; Physician Assistant Medical; ADMITTING PHYSICIAN Internal Medicine; FAMILY PHYSICIAN Family Medicine
PROC: 3E0DXRZ Introduction of Antiarrhythmic into Mouth and Pharynx, External Approach (ICD-10-PCS; 2023-12-21)
DX: I48.19 Other persistent atrial fibrillation (principal); I50.22 Chronic systolic (congestive) heart failure; Z68.42 Body mass index [BMI] 45.0-49.9, adult; E66.01 Morbid (severe) obesity due to excess calories; G47.33 Obstructive sleep apnea (adult) (pediatric); I11.0 Hypertensive heart disease with heart failure; E78.5 Hyperlipidemia, unspecified; R73.03 Prediabetes; I47.19 Other supraventricular tachycardia; I42.8 Other cardiomyopathies; I47.20 Ventricular tachycardia, unspecified
CPT/HCPCS: 80048; 83735; 93005

== ENCOUNTER → 2024-04-07 10:55 | Outpatient (REF) | payer BC, SELFPAY ==
[2024-04-07 12:41] LABS: ALT (SGPT) 17 U/L (0-50); AST (SGOT) 19 U/L (17-59); Albumin 4.1 g/dl (3.5-5.0); Alkaline Phosphatase 81 U/L (38-126); Blood Urea Nitrogen 24 mg/dl (9-20); Calcium 9.6 mg/dl (8.4-10.2); Carbon Dioxide 23 mmol/L (22-30); Chloride 107 mmol/L (98-107); Glucose 114 mg/dl (70-99); HDL Cholesterol 42 mg/dl; LDL Cholesterol, Calculated 108 mg/dl; Potassium 4.7 mmol/L (3.5-5.1); Sodium 141 mmol/L (135-145); Total Bilirubin 0.6 mg/dl (0.2-1.3); Total Cholesterol 180 mg/dl (50-199); Triglyceride 154 mg/dl (10-149); Very Low Density Lipoprotein 30 mg/dl (0-30); eGFR > 60.00
[2024-04-07 14:27] LABS: Glycohemoglobin (HgbA1c) 5.7 % (4.0-5.6)
[2024-04-08 18:51] LABS: PSA Total 2.1 ng/mL (0.0-4.0)
== END ==
LOC: REG 10:55
PROVIDERS: ATTENDING PHYSICIAN Specialist; FAMILY PHYSICIAN Family Medicine
DX: N40.1 Benign prostatic hyperplasia with lower urinary tract symptoms (principal); I10 Essential (primary) hypertension; E78.5 Hyperlipidemia, unspecified; E11.59 Type 2 diabetes mellitus with other circulatory complications
CPT/HCPCS: 36415; 80053; 80061; 83036; 84153; 84154

== ENCOUNTER → 2024-10-09 08:47 | Outpatient (REF) | payer BC, SELFPAY ==
[2024-10-09 10:26] LABS: ALT (SGPT) 17 U/L (0-50); AST (SGOT) 17 U/L (17-59); Albumin 3.9 g/dl (3.5-5.0); Alkaline Phosphatase 65 U/L (38-126); Blood Urea Nitrogen 21 mg/dl (9-20); Calcium 9.2 mg/dl (8.4-10.2); Carbon Dioxide 26 mmol/L (22-30); Chloride 107 mmol/L (98-107); Glucose 98 mg/dl (70-99); Potassium 4.9 mmol/L (3.5-5.1); Sodium 140 mmol/L (135-145); Total Bilirubin 0.6 mg/dl (0.2-1.3); eGFR > 60.00
[2024-10-09 10:42] LABS: Glycohemoglobin (HgbA1c) 5.4 % (4.0-5.6)
== END ==
LOC: REG 08:47
PROVIDERS: ATTENDING PHYSICIAN Family Medicine
DX: E11.59 Type 2 diabetes mellitus with other circulatory complications (principal); I10 Essential (primary) hypertension
CPT/HCPCS: 36415; 80053; 83036

== ENCOUNTER → 2024-11-30 13:33 | Outpatient (REF) | payer BC, SELFPAY | LOC: RCS 13:33 | PROVIDERS: ATTENDING PHYSICIAN Internal Medicine Cardiovascular Disease; FAMILY PHYSICIAN Family Medicine | DX: I42.8 Other cardiomyopathies (principal) | CPT/HCPCS: 93306; Q9950 ==

== ENCOUNTER → 2025-04-14 09:45 | Outpatient (REF) | payer BC, SELFPAY | LOC: REG 09:45 | PROVIDERS: ATTENDING PHYSICIAN Nurse Practitioner Family; OTHER PHYSICIAN Specialist | DX: E11.59 Type 2 diabetes mellitus with other circulatory complications (principal); I48.19 Other persistent atrial fibrillation; G47.33 Obstructive sleep apnea (adult) (pediatric); I10 Essential (primary) hypertension; I50.22 Chronic systolic (congestive) heart failure; Z12.5 Encounter for screening for malignant neoplasm of prostate | CPT/HCPCS: 36415; 84153; 84154 ==

== ENCOUNTER → 2025-07-02 09:27 | Outpatient (REF) | payer BC, SELFPAY ==
--- NOTE | 2025-07-02 10:35 | CARDSERVLU ---
Echocardiogram with [facility] completed after protocol screening completed. Allergies verified.
Patent IV site: _Left antecubital 22 G PC inserted by Dorene Waldron RN____
IV site flushed with 0.9% NaCl pre and post administration.
Diluted bolus method utilized to enhance visualization of ventricular aj.
Total volume given: __3__ mL
Patient tolerated all procedures well without complications.
Heplock D/C ed at 1032, site clear, no redness, no edema. Pressure held for few minutes as pt on Eliquis, no bleeding, 2x2 applied and taped. Pt offers no complaints.
== END ==
LOC: RCS 09:27
PROVIDERS: ATTENDING PHYSICIAN Internal Medicine; FAMILY PHYSICIAN Family Medicine
DX: I50.22 Chronic systolic (congestive) heart failure (principal); I48.19 Other persistent atrial fibrillation; I10 Essential (primary) hypertension
CPT/HCPCS: 93306; Q9950